=== PATIENT | female | born 1970 | race Caucasian/White ===

== ENCOUNTER → 2017-05-18 | Outpatient (CLI) | payer BC | LOC: FIMAGING 11:49 | PROVIDERS: ATTEND Internal Medicine Hematology & Oncology | DX: Z12.31 Encounter for screening mammogram for malignant neoplasm of breast (principal); Z90.12 Acquired absence of left breast and nipple; Z85.3 Personal history of malignant neoplasm of breast | CPT/HCPCS: G0202-52 ==

== ENCOUNTER → 2017-06-06 | Outpatient (CLI) | payer BC | LOC: FIMAGING 08:58 | PROVIDERS: ATTEND Internal Medicine Hematology & Oncology | DX: Z13.820 Encounter for screening for osteoporosis (principal); M81.0 Age-related osteoporosis without current pathological fracture ==

== ENCOUNTER 2018-01-25 05:50 | Observation (INO) | payer BC ==
--- NOTE | 2018-01-24 23:58 | GHP ---
[f rep st] PREOP HISTORY AND PHYSICAL DATE OF ADMISSION: 01/25/2018 The patient is slated for surgery on 01/25/2018 on the gynecology service. HISTORY OF PRESENT ILLNESS: Upon admission, the patient is a 47-year-old, G1, P1, who has been diagnosed with stage IIA left invasive ductal carcinoma of the breast in May 2016, who has been advised by her oncologist to proceed with BSO to optimize her treatment and reduce her systemic risk of osteoporosis due to her current Lupron treatment. The patient desired to proceed with BSO laparoscopically and also now wants to pursue a hysterectomy, as she has a history of dysplasia, which required a LEEP procedure at the age of 22. The patient has been advised as to the risks and benefits of the surgery, and the consent form signed. The patient has been on Lupron treatment to shut down her ovarian function to facilitate chemotherapy success and has developed osteoporosis. The patient is aware that BSO will permanently put her into menopause which will optimize her treatment and reduce risk to her bones. The patient has been bothered by arthralgias since radiation treatment. This has responded to ibuprofen therapy. The patient has not had any vaginal bleeding on the Lupron. PAST MEDICAL HISTORY: Stage IIA and left invasive ductal carcinoma of the breast, osteoporosis, cervical dysplasia, arthralgias. PAST SURGICAL HISTORY: Had a nipple-sparing mastectomy in July 2016 with lymph node sampling. 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 LEEP procedure at age 22. Urethral dilation surgery as a child. PAST OBSTETRIC HISTORY: Vaginal delivery 11 years ago. Her son is named Aldo. ALLERGIES: The patient has no known drug allergies. She wants to avoid IV morphine as this made her feel miserable. CURRENT MEDICATION: Lupron with the last shot in January 01, an aromatase inhibitor. Multiple supplements and vitamins, oxycodone after recent breast injury for 2-3 days. 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 She has never been a smoker. She has occasional alcohol use but no other drug use. FAMILY HISTORY: Mom had breast cancer at age 55. Paternal grandfather, lung, and maternal grandfather, prostate cancer. My Risk 18 panel was negative. LABORATORY DATA: In December 2017 revealed a white count of 6.5, hemoglobin and hematocrit 14/42, platelets in the mid 90s to 1000. REVIEW OF SYSTEMS: A 10-point review of systems performed with the patient and pertinent positives and negatives as noted above. The patient does have arthralgias and recently plantar fasciitis. She reports hot flashes all the time with the ovarian suppression with Lupron. PREOPERATIVE PHYSICAL EXAMINATION: GENERAL: The patient is a well-developed, well-nourished, white female, in no acute distress. CONSTITUTIONAL: Alert and oriented. VITAL SIGNS: Weight 147.4 pounds. The patient is clinically afebrile, blood pressure 118/80. HEENT: Shows no thyromegaly. No adenopathy, and the oropharynx is clear. LUNGS: Clear to auscultation bilaterally. CARDIOVASCULAR: Regular rate and rhythm. ABDOMEN: Soft, nontender. PELVIC: Deferred recently but was performed 6 months ago and showed normal external genitalia. Speculum exam revealed a normal-appearing cervix and a Pap smear was negative with the HPV negative. Vaginal tissue was normal. Bimanual exam shows small uterus, mobile and nontender, and no adnexal masses. EXTREMITIES: Nontender and no edema. ASSESSMENT: Stage IIA ductal breast cancer, osteoporosis on Lupron therapy, cervical dysplasia. PLAN: We will perform a total laparoscopic hysterectomy, bilateral salpingo- oophorectomy. This will be performed on 01/25/2018. The patient will have preoperative antibiotics as well as SCDs on for DVT prophylaxis. The patient is strongly desiring to be discharged later in the day of surgery and not spend the night in the hospital. We will assess how the day goes after surgery. /[id number]/MODL MTDD
[2018-01-25] MEDS ORDERED: LR 1,000 ML IV ONE (05:59)
[2018-01-25] MEDS ORDERED: ceFAZolin 2 GM/DEXTROSE 100 ML IV ONE (05:59)
[2018-01-25] MEDS ORDERED: MIDAZOLAM 2 MG/2 ML VIAL IVP ONE (07:00)
--- NOTE | 2018-01-25 07:00 | PDANEPAE ---
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 - Pulmonary History Hx COPD: No Hx Asthma/Reactive Airway Disease: No Hx Recent Upper Respiratory Infection: No Hx Oxygen in Use at Home: No Hx Sleep Apnea: No Sleep Apnea Screening Result - Last Documented: Negative - Neurologic History Hx Cerebrovascular Accident: No Hx Seizures: No Hx Dementia: No - Endocrine History Hx Diabetes: No Hypothyroid: No Hyperthyroid: No - Renal History Hx Renal Disorders: No - Liver History Hx Hepatic Disorders: No - Neurological & Psychiatric Hx Hx Neurological and Psychiatric Disorders: No - Cancer History Hx Cancer: Yes Cancer History Comment: breast - Congenital Disorder History Hx Congenital Disorders: No - GI History Hx Gastrointestinal Disorders: No - Other Health History Other Health History: none - Chronic Pain History Chronic Pain: Yes (breast surgical areas) - Surgical History Prior Surgeries: mastectomy 2017. breast reconstrution 09/16 ANE Review of Systems Review of systems is: negative Review of Systems: - Exercise capacity Exercise capacity: >=4 METS METS (RN): 5 METS ANE Patient History - Allergies Allergies/Adverse Reactions: No Known Allergies Allergy (Verified 01/16/18 11:22) - Home Medications Home Medications: Exemestane 25 mg PO DAILY 01/16/18 [Last Taken 01/24/18] Herbals/Supplements -Info Only 1 ea PO DAILY 01/16/18 [Last Taken 1 Week Ago ~] Calcium Carbonate [Oyster Shell Calcium 500 mg (*)] 1,000 mg PO DAILY 01/17/18 [ Last Taken 1 Week Ago ~01/18/18] Cholecalciferol Vit D3 [Vitamin D3 (*)] 1,000 units PO DAILY 01/17/18 [Last Taken 1 Week Ago ~01/18/18] Leuprolide Acetate [Lupron Depot] 0 mg IM Q28D 01/17/18 [Last Taken 01/01/18] Pyridoxine HCl [Vitamin B-6 100 mg (*)] 100 mg PO DAILY 01/17/18 [Last Taken 1 Week Ago ~01/18/18] Zoledronic Acid [Zometa] 0 mg IV .6MONTHS 01/17/18 [Last Taken 09/27/17] - NPO status NPO Status: no food or drink >8 hours NPO Since - Liquids (Date): 01/24/18 NPO Since - Liquids (Time): 22:30 NPO Since - Solids (Date): 01/24/18 NPO Since - Solids (Time): 21:00 - Anes Hx Anes Hx: no prior problems - Smoking Hx Smoking Status: Never smoked - Alcohol Use Alcohol Use: Rarely - Family Anes Hx Family Anes Hx: none Family Hx Anesthesia Complications: none ANE Labs/Vital Signs - Vital Signs Vital Signs: reviewed preoperatively; see RN documention for details Blood Pressure: 134/97 Heart Rate: 74 Respiratory Rate: 14 O2 Sat (%): 97 Height: 177.8 cm Weight: 65.771 kg ANE Physical Exam - Airway Neck exam: FROM Mallampati Score: Class 2 Mouth exam: normal dental/mouth exam - Pulmonary Pulmonary: no respiratory distress - Cardiovascular Cardiovascular: regular rate and rhythym, diastolic murmur - ASA Status ASA Status: II ANE Anesthesia Plan Anesthesia Plan: general endotracheal anesthesia
[2018-01-25] MEDS ORDERED: ROCURONIUM 100 MG/10 ML VIAL ONE (07:05)
[2018-01-25] MEDS ORDERED: fentaNYL 100 MCG/2 ML INJ ONE ×5 (07:05→11:28)
[2018-01-25] MEDS ORDERED: PROPOFOL 200 MG/20 ML VIAL ONE (07:05)
[2018-01-25] MEDS ORDERED: ONDANSETRON 4 MG/2 ML VIAL ONE ×2 (07:05→10:50)
[2018-01-25] MEDS ORDERED: DEXAMETHASONE 4 MG/ML VIAL ONE (07:05)
[2018-01-25] MEDS ORDERED: LIDOCAINE 2% 5 ML SDV ONE (07:05)
[2018-01-25] MEDS ORDERED: SUGAMMADEX SODIUM 200 MG/2 ML VIAL IVP ONE (07:06)
--- NOTE | 2018-01-25 07:17 | PDHPUP ---
History & Physical Update H&P update statement: This history and physical update is based on an assessment of the patient which was completed after admission or registration (within 24 hours), but prior to the surgery/procedure. H&P update: no change in patient's condition since H&P completed
[2018-01-25] MEDS ORDERED: METHYLENE BLUE 0.5% 50 MG/10 ML AMP ONE (07:26)
[2018-01-25] MEDS ORDERED: BUPIVACAINE 0.25% 30 ML SDV ONE (07:26)
[2018-01-25] MEDS ORDERED: SURGIFLO MATRIX KIT WITH THROMBIN 8 ML TP ONE (07:26)
[2018-01-25] MEDS ORDERED: ALBUTEROL 3 ML DEYVIAL IH PRN (09:58)
[2018-01-25] MEDS ORDERED: ONDANSETRON 4 MG/2 ML VIAL IVP PRN (09:58)
[2018-01-25] MEDS ORDERED: NALOXONE HCL 0.4 MG/ML INJ IVP PRN (09:58)
[2018-01-25] MEDS ORDERED: HYDROCODONE/APAP 5/325 TAB PO PRN (09:58)
[2018-01-25] MEDS ORDERED: ACETAMINOPHEN 500 MG TAB PO PRN (09:58)
[2018-01-25] MEDS ORDERED: oxyCODONE IR 5 MG TAB PO PRN (09:58)
--- NOTE | 2018-01-25 09:59 | POSTANESTH ---
Post Anesthetic Evaluation Cardiovascular Status: Normal, Stable Respiratory Status: Normal, Stable Level of Consciousness/Mental Status: Can Participate in Eval Pain Control: Adequate, Prn Tx Ordered Nausea/Vomiting Control: Adequate, Prn Tx Ordered Complications Possibly Related to Anesthesia: None Noted
[2018-01-25] MEDS ORDERED: LR 1,000 ML IV SCH (10:00)
--- NOTE | 2018-01-25 10:08 | POSTOPPROG ---
Post Op Note Date of Operation: 01/25/18 Surgeon: Radha Brady Electricity Trader: Ban Tracy MD Anesthesiologist: Osiel Solorzano MD Anesthesia: GET(General Endotracheal) Pre-op Diagnosis: breast cancer, osteoporosis, cervical dysplasia Post-op Diagnosis: same Indication: using Lupron for E2 suppression and osteo developed, rec to have BSO Procedure: TLH, BSO Findings: small nl ut, tubes and ov bilat. perf at fundus placing Slime, placed scope Inf/Abcess present in the surg proc area at time of surgery?: No Depth: Organ Space EBL: 50-100 (100) Total fluids administered: 900ml Specimen(s): uterus, tubes and ov bilat
[2018-01-25] MEDS: fentaNYL 100 MCG/2 ML INJ IVP PRN ×3 (10:09→11:29)
[2018-01-25] MEDS ORDERED: HYDROmorphONE/DILAUDID 1 MG/ML INJ ONE (10:11)
[2018-01-25] MEDS: HYDROmorphONE/DILAUDID 1 MG/ML INJ IVP PRN ×3 (10:12→10:33)
[2018-01-25] MEDS ORDERED: PROMETHAZINE HCL 25 MG/ML INJ ONE (11:11)
[2018-01-25] MEDS: PROMETHAZINE HCL 25 MG/ML INJ IVP PRN ×2 (11:16→11:26)
[2018-01-25] MEDS ORDERED: ACETAMINOPHEN 500 MG TAB ONE (11:28)
[2018-01-25] MEDS ORDERED: oxyCODONE IR 5 MG TAB ONE (11:28)
[2018-01-25] MEDS ORDERED: KETOROLAC 30 MG/1 ML SDV IVP SCH (12:00)
[2018-01-25] MEDS: HYDROCODONE/APAP 5/325 TAB PO PRN ×2 (14:08→18:17)
[2018-01-25 16:28] VITALS: BP 132/72
--- NOTE | 2018-01-25 19:10 | SOAPPROG ---
SOAP Progress Note Assessment/Plan: Assessment: POD 1/2 s/p TLH, BSO Breast cancer, osteo Plan: Desires d/c, script previously given and husb has filled for Rome #20 01/25/18 19:06 Subjective: Pt doing well. No nausea and has jorgito reg diet - light. Pain is well controlled with Rome and Toradol. Has been up and ambulated. Has been able to urinate without problems once nelson removed. desires d/c Objective: Vital Signs Temp Pulse Resp BP Pulse Ox 37.2 C 72 20 132/72 H 100 01/25/18 15:15 01/25/18 15:15 01/25/18 15:15 01/25/18 15:15 01/25/18 15:15 01/24/18 01/25/18 01/26/18 05:59 05:59 05:59 Intake Total 2300 Output Total 1275 Balance 1025 Physical Exam - Physical Exam General Appearance: WD/WN Abdomen: non-tender (approp post op tenderness), soft, other (bandaides x 3 CDI) Pelvic Exam: vaginal bleeding (scant vag spotting) Skin: normal color, warm/dry Extremities: non-tender, pedal edema (none) Neuro/Psych: alert, normal mood/affect ICD10 Worksheet Patient Problems: Problems Problem Status Onset S/P bilateral salpingo-oophorectomy Acute S/P laparoscopic hysterectomy Acute
[2018-01-25] MEDS ORDERED: ENOXAPARIN 30 MG/0.3 ML SYR SC SCH (21:00)
[2018-01-26] MEDS ORDERED: IBUPROFEN 600 MG TAB PO SCH (10:02)
--- NOTE | 2018-02-21 08:26 | GOP ---
[f rep st] OPERATIVE REPORT DATE OF OPERATION: 01/25/2018 SURGEON: Radha Brady MD VP HUMAN RESOURCES: Ban Tracy MD. ANESTHESIA: General endotracheal anesthesia. ANESTHESIOLOGIST: Osiel Solorzano MD. PREOPERATIVE DIAGNOSIS: Breast cancer, osteoporosis, cervical dysplasia. POSTOPERATIVE DIAGNOSIS: Breast cancer, osteoporosis, cervical dysplasia. PROCEDURE PERFORMED: Total laparoscopic hysterectomy, bilateral salpingo-oophorectomy. FINDINGS: Small normal uterus, tubes, and ovaries bilaterally. Uterine perforation at the fundus wh en placing the CECILE, identified after placing the laparoscope. SPECIMENS: The specimen to pathology was the uterus, tubes, and ovaries. ESTIMATED BLOOD LOSS: 100 mL. INDICATIONS: The patient is a 47-year-old para 1 white female with stage IIA left invasive ductal ca rcinoma of the breast diagnosed in May 2016, who has been advised by her oncologist to proceed w ith a BSO to optimize her treatment options. The patient has been on suppressive Lupron treatment an d has developed osteoporosis. The patient now wants to proceed with a BSO and also has a history of dysplasia with a LEEP procedure at the age of 22 and therefore wants to also proceed with a hysterect colton. The patient has been advised as to the risks and benefits of surgery and we plan to proceed wit h the total laparoscopic hysterectomy with BSO. Consent form is signed. DESCRIPTION OF PROCEDURE: The patient was taken to the operating room where following satisfactory g eneral endotracheal anesthesia, the patient was placed in dorsal lithotomy position. The patient rec eived antibiotics prior to surgery and also had SCDs on the lower extremities for DVT prophylaxis. T he patient had a Wade catheter placed after the anesthesia. The patient was prepped and draped in t he usual sterile manner for laparoscopy. A sterile speculum was placed in the vagina for the placeme nt of the uterine manipulator. Tenaculum was placed on the anterior lip of the cervix and traction a pplied. The cervix was slowly dilated with Hegar dilators. A small intrauterine balloon tip was int roduced. However, there was concern that this had perforated through the fundus as the dilator was e xtending farther than expected. The balloon tip was removed and it was decided to proceed with placi ng the laparoscope for better visualization with placement of the CECILE. Surgery was directed to the abdomen. 0.25% Marcaine was used to inject at the umbilical area and a small incision was made on the natural crease in the belly button. A small incision was made and then with upward traction on the abdominal wall, a Veress needle was introduced into the abdominal cavity. There was normal low openi ng pressures and CO2 was used to insufflate the abdomen. After good insufflation then the 5 mm troca r was introduced with upward traction on the abdominal wall. The laparoscopic camera was placed thro [facility] this port and confirmed intra-abdominal position. The 5 mm trocar was introduced through the rig ht lower abdomen under direct visualization to place a blunt probe. This was used to push the bowel up out of the pelvis and with good visualization now there did appear to be a small perforation at th e fundus in the midline. I went back vaginally now with direct visualization through the scope. I w as able to introduce the intrauterine balloon tip and insufflate the balloon and attached the CECILE ut erine manipulator without any problems. The white tip passed the balloon, did extend through the luz rine perforation. However, the balloon maintains good position and allowed for good uterine manipula tion. After the CECILE was correctly positioned and secured, then the procedure was continued abdomina lly. There were no adhesions in the abdomen or pelvis. A 10 mm trocar was introduced in the left lo wer abdomen under direct visualization without problem. Complete inspection was performed. The uter us, tubes, and ovaries all appeared normal with no adhesions. The liver and appendix were also visua lized and were normal. The ureters could be seen easily and were well out of the operative area bila terally. Dissection was started on the right adnexa. The tube and ovary were elevated and the LigaS ure was used to cauterize and separate off the infundibulopelvic pedicle. Then, the broad ligament w as as well as the round ligament down to the level of the internal os. The uterine vessels were cauterized with the LigaSure. The anterior peritoneal viscera was scored with the ligature and down off the cervix to develop the bladder flap. Following this, then the same steps of t he procedure were performed on the left adnexa off the IP, broad and round ligaments, down to the internal os. The anterior visceral perineum again was to complete the bladder flap and pushed it down well off the cervix. The cervical cup could be easily palpated from the CECILE maryanne pulator. Further cautery was performed to secure the uterine vessels and then the Hook instrument on the LigaSure was used to score around the tissue circumferentially off the vagina from ar ound the cervix. After this dissection was complete, then the uterus, tubes, and ovaries were all re moved vaginally without any problem. A laparotomy pad wrapped within a glove was used as a vaginal o cclusion device to maintain our insufflation for closure of the cuff. The cuff edges and vaginal muc juan were easily identifiable. Closure was performed with the V-Loc 0 Vicryl. The angles of the inci nirmala were also incorporated with the uterosacral ligaments for good suspension of the cuff. Closure was completed with a single stitch of the 0 Vicryl. After closure was complete and the stitch was se parated, there was minimal fluid in the posterior cul-de-sac which was suctioned out. The ureters we re again inspected and were peristalsing normally. The patient tolerated the procedure well and clos ure was performed. The fascial closure device was used to close the 10 mm port with 0 Vicryl. Follo wing this, then the other ports were removed and the camera taken out. The CO2 was allowed to escape from the abdominal area and then the umbilical port was taken out. Each of the skin incisions were closed with a subcuticular stitch of 4-0 Monocryl. Mastisol and Steri-Strips were placed over the in cisions and then Band-Aids were placed. There was good closure of the 3 incisions. A sponge stick w as used to check vaginally and there was minimal bleeding noted from the vaginal cuff. No active blee ding was noted. Wade catheter continued to drain clear urine. The patient was cleaned off and take n out of position and then was awoken and taken to the recovery room in stable condition. There was no infection noted at the time of surgery. TOTAL FLUIDS: 900 mL. /[id number]/MODL
== END 2018-01-25 20:30 | disposition home or self-care (01) ==
LOC: F3E 05:50 → FOB 12:10
PROVIDERS: ADMIT Obstetrics & Gynecology; ATTEND Obstetrics & Gynecology
DX: C50.912 Malignant neoplasm of unspecified site of left female breast (principal); M81.8 Other osteoporosis without current pathological fracture; Z79.818 Long term (current) use of other agents affecting estrogen receptors and estrogen levels; Z90.12 Acquired absence of left breast and nipple; Z87.410 Personal history of cervical dysplasia
CPT/HCPCS: 58571; G0378; J0690; J1100; J1170; J1885; J2250; J2405; J2550; J2704; J3010; Q9968

== ENCOUNTER → 2018-05-22 | Outpatient (CLI) | payer BC | LOC: FIMAGING 12:27 | PROVIDERS: ATTEND Obstetrics & Gynecology | DX: Z12.31 Encounter for screening mammogram for malignant neoplasm of breast (principal); Z85.3 Personal history of malignant neoplasm of breast; Z90.12 Acquired absence of left breast and nipple; Z80.3 Family history of malignant neoplasm of breast ==